=== PATIENT | female | born 1965 | race Caucasian/White ===

== ENCOUNTER 2018-01-13 13:33 | Inpatient (IN) | payer MEDICAID ==
[~2018-01-13] VITALS: Ht 154.9 cm; Wt 89.4 kg
[~2018-01-13 13:33] MED LIST: BENZ1TAB7 PO; BUPR100T4 PO; CITA40TA22 PO
[2018-01-13] MEDS ORDERED: ALBUTEROL (13:39)
[2018-01-13] MEDS ORDERED: ALBUTEROL (0.083%) 2.5MG/3ML NEB ONE ×2 (13:56→15:25)
[2018-01-13] MEDS ORDERED: IPRATROPIUM BROMIDE (0.02%) 0.5MG/2.5ML NEB ONE ×2 (13:57→15:26)
[2018-01-13] MEDS ORDERED: IPRATROPIUM BROMIDE (0.02%) 0.5MG/2.5ML NEB HHN ONE ×2 (14:00→15:30)
[2018-01-13] MEDS ORDERED: MAGNESIUM 2 G PREMIX 50 ML IV ONE (14:00)
[2018-01-13] MEDS ORDERED: ALBUTEROL (0.5%) 2.5MG/0.5ML NEB HHN ONE (14:00)
[2018-01-13 14:28] LABS: BASOPHILS % 0.5 % (0.0-2.0); EOSINOPHILS % 0.1 % (0.0-5.0); HEMATOCRIT. 44.9 % (36.0-48.0); HEMOGLOBIN. 14.6 g/dL (12.0-16.0); LYMPHOCYTES % 11.6 % (20.0-50.0); MEAN PLATELET VOLUME 7.8 fl (7.4-10.4); MONOCYTES % 4.5 % (2.0-8.0); NEUTROPHILS % 83.3 % (40.0-76.0); PLATELET 257 x1000/uL (130-400); RED BLOOD CELL COUNT 4.87 mill/uL (4.2-5.4); RED CELL DISTRIBUTION WIDTH 13.7 % (11.6-14.6)
[2018-01-13] MEDS ORDERED: ACETAMINOPHEN 325MG TABLET PO ONE (15:15)
[2018-01-13] MEDS ORDERED: ALBUTEROL (0.083%) 2.5MG/3ML NEB HHN ONE (15:30)
[2018-01-13] MEDS ORDERED: METHYLPREDNISOLONE SOD SUCC 125 MG/2 ML VIAL IV ONE (16:00)
[2018-01-13 18:20] VITALS: BP 102/75
[2018-01-13 20:00] VITALS: BP 120/67
[2018-01-13 21:19] LABS: CHLORIDE 104 mEq/L (98-107)
[2018-01-13] MEDS ORDERED: ACETAMINOPHEN 650MG/20.3ML UDC GT PRN (21:45)
[2018-01-13] MEDS ORDERED: NA PHOS,M-B/NA PHOS,DI-BA ENEMA 118ML PR PRN (21:45)
[2018-01-13] MEDS ORDERED: ENOXAPARIN 40MG/0.4ML SYR SUBCUT SCH (21:45)
[2018-01-13] MEDS ORDERED: ACETAMINOPHEN 650MG SUPP PR PRN (21:45)
[2018-01-13] MEDS ORDERED: DIPHENHYDRAMINE 50MG/ML VIAL IV PRN (21:45)
[2018-01-13] MEDS ORDERED: CLONIDINE 0.1MG TABLET PO PRN (21:45)
[2018-01-13] MEDS ORDERED: ONDANSETRON HCL 4MG/2ML VIAL IV PRN (21:45)
[2018-01-13] MEDS ORDERED: MAGNESIUM/ALUMINUM HYDROXIDE/SIMETHICONE 30ML UDC PO PRN (21:45)
[2018-01-13] MEDS ORDERED: IPRATROPIUM/ALBUTEROL 0.5-3(2.5)MG/3ML NEB INH PRN (21:45)
[2018-01-13] MEDS ORDERED: DOCUSATE SODIUM 100MG CAPSULE PO PRN (21:45)
[2018-01-13] MEDS ORDERED: ACETAMINOPHEN 325MG TABLET PO PRN (21:45)
[2018-01-13] MEDS: METHYLPREDNISOLONE SOD SUCC 40 MG/ML VIAL IV SCH (22:13)
[2018-01-13] MEDS: GUAIFENESIN 200MG/10ML SUGAR FREE UDC PO PRN (22:13)
[2018-01-13] MEDS: HYDROCODONE/ACETAMINOPHEN 10/325MG TABLET PO PRN (22:15)
[2018-01-13] MEDS: SODIUM CHLORIDE 0.9% INJ 3ML FLUSH IVF SCH (22:16)
[2018-01-13] MEDS: LEVOFLOXACIN 500MG PREMIX 100 ML IV SCH (23:32)
[2018-01-14] VITALS: BP 108/74
[2018-01-14] MEDS: IPRATROPIUM/ALBUTEROL 0.5-3(2.5)MG/3ML NEB INH SCH ×5 (01:17→20:51)
[2018-01-14 04:00] VITALS: BP 122/87
[2018-01-14 06:04] LABS: HEMATOCRIT. 41.3 % (36.0-48.0); HEMOGLOBIN. 13.6 g/dL (12.0-16.0); MEAN CORPUSCULAR HEMOGLOBIN 30.2 pg (28.0-32.0); MEAN CORPUSCULAR VOLUME 91.5 fL (81.0-99.0); MEAN PLATELET VOLUME 8.1 fl (7.4-10.4); PLATELET 255 x1000/uL (130-400); RED BLOOD CELL COUNT 4.52 mill/uL (4.2-5.4); RED CELL DISTRIBUTION WIDTH 13.6 % (11.6-14.6)
[2018-01-14] MEDS: SODIUM CHLORIDE 0.9% INJ 3ML FLUSH IVF SCH ×3 (06:14→22:25)
[2018-01-14] MEDS: METHYLPREDNISOLONE SOD SUCC 40 MG/ML VIAL IV SCH ×3 (06:14→22:25)
[2018-01-14 07:19] LABS: CHLORIDE 103 mEq/L (98-107)
[2018-01-14 07:28] LABS: LDL CHOLESTEROL 62 mg/dL (5-100)
[2018-01-14 07:29] LABS: HDL CHOLESTEROL 81 mg/dL (40-59)
[2018-01-14 08:00] VITALS: BP 108/70
[2018-01-14] MEDS ORDERED: GABA-531 MT (08:01)
[2018-01-14] MEDS ORDERED: MELO-106 MT (08:01)
[2018-01-14] MEDS: ENOXAPARIN 30MG/0.3ML SYR SUBCUT SCH ×2 (09:29→20:45)
[2018-01-14 12:00] VITALS: BP 113/68
[2018-01-14] MEDS: GABAPENTIN 300MG CAPSULE PO SCH (14:55)
[2018-01-14] MEDS: GUAIFENESIN 200MG/10ML SUGAR FREE UDC PO PRN ×2 (14:55→20:37)
[2018-01-14] MEDS: HYDROCODONE/ACETAMINOPHEN 10/325MG TABLET PO PRN (14:55)
[2018-01-14] MEDS ORDERED: BUDESONIDE 0.5MG/2ML NEB HHN SCH (15:00)
[2018-01-14 16:00] VITALS: BP 119/75
[2018-01-14 19:42] LABS: CLARITY URINE CLEAR (CLEAR); COLOR URINE YELLOW (YELLOW); KETONES URINE TRACE (NEGATIVE); LEUKOCYTE ESTERASE URINE TRACE (NEGATIVE); NITRITE URINE NEGATIVE (NEGATIVE); OCCULT BLOOD URINE NEGATIVE (NEGATIVE); PH URINE 6.5 (4.5-8.0); PROTEIN URINE TRACE (NEGATIVE); SPECIFIC GRAVITY URINE 1.032 (1.005-1.030)
[2018-01-14 19:48] LABS: *AMPHETAMINES SCREEN URINE NEGATIVE (NEGATIVE); *BARBITURATES SCREEN URINE NEGATIVE (NEGATIVE); *BENZODIAZEPINES SCREEN URINE NEGATIVE (NEGATIVE); *COCAINE SCREEN URINE NEGATIVE (NEGATIVE); METHADONE URINE SCREEN NEGATIVE (NEGATIVE)
[2018-01-14 19:49] LABS: CANNABINOID URINE SCREEN PRESUMTIVE POSITIVE (NEGATIVE); OPIATES URINE SCREEN PRESUMTIVE POSITIVE (NEGATIVE); PHENCYCLIDINE URINE SCREEN NEGATIVE (NEGATIVE)
[2018-01-14 20:00] VITALS: BP 114/66
[2018-01-14] MEDS: BUPROPION HCL 100MG TABLET PO SCH (20:33)
[2018-01-14] MEDS: BENZTROPINE MESYLATE 1MG TABLET PO SCH (20:35)
[2018-01-14] MEDS: CITALOPRAM HYDROBROMIDE 40MG TABLET PO SCH (20:36)
[2018-01-14] MEDS: MONTELUKAST SODIUM 10MG TABLET PO SCH (20:37)
[2018-01-14] MEDS: BUDESONIDE 0.5MG/2ML NEB HHN SCH (20:51)
[2018-01-14] MEDS ORDERED: CITALOPRAM HYDROBROMIDE 40MG TABLET PO SCH (21:00)
[2018-01-14] MEDS: LEVOFLOXACIN 500MG PREMIX 100 ML IV SCH (22:25)
[2018-01-15] VITALS: BP 112/71
[2018-01-15] MEDS: IPRATROPIUM/ALBUTEROL 0.5-3(2.5)MG/3ML NEB INH SCH ×4 (02:14→21:46)
[2018-01-15 04:00] VITALS: BP 107/63
[2018-01-15] MEDS: SODIUM CHLORIDE 0.9% INJ 3ML FLUSH IVF SCH ×3 (05:23→22:51)
[2018-01-15] MEDS: METHYLPREDNISOLONE SOD SUCC 40 MG/ML VIAL IV SCH ×3 (05:23→22:51)
[2018-01-15] MEDS ORDERED: SODIUM POLYSTYRENE SULFONATE 15 G/60 ML BOT PO PRN (07:30)
[2018-01-15 08:00] VITALS: BP 112/69
[2018-01-15] MEDS ORDERED: BUPROPION HCL 100MG TABLET PO SCH (09:00)
[2018-01-15] MEDS: GABAPENTIN 300MG CAPSULE PO SCH ×2 (09:11→17:51)
[2018-01-15] MEDS: BUPROPION HCL 100MG TABLET PO SCH (09:11)
[2018-01-15] MEDS: ENOXAPARIN 30MG/0.3ML SYR SUBCUT SCH ×2 (09:11→22:51)
[2018-01-15] MEDS: BUDESONIDE 0.5MG/2ML NEB HHN SCH ×2 (09:14→21:46)
[2018-01-15 09:20] LABS: BASOPHILS % 0.2 % (0.0-2.0); HEMATOCRIT. 39.8 % (36.0-48.0); HEMOGLOBIN. 13.5 g/dL (12.0-16.0); LYMPHOCYTES % 8.6 % (20.0-50.0); MEAN CORPUSCULAR HEMOGLOBIN 30.7 pg (28.0-32.0); MEAN CORPUSCULAR VOLUME 90.8 fL (81.0-99.0); MEAN PLATELET VOLUME 7.8 fl (7.4-10.4); MONOCYTES % 4.5 % (2.0-8.0); NEUTROPHILS % 86.7 % (40.0-76.0); PLATELET 281 x1000/uL (130-400); RED BLOOD CELL COUNT 4.39 mill/uL (4.2-5.4); RED CELL DISTRIBUTION WIDTH 13.6 % (11.6-14.6)
[2018-01-15 09:47] LABS: CHLORIDE 103 mEq/L (98-107)
[2018-01-15 11:05] LABS: PLATELET ESTIMATE NORMAL
[2018-01-15 12:00] VITALS: BP 105/48
[2018-01-15 16:00] VITALS: BP 119/70
[2018-01-15] MEDS: HYDROCODONE/ACETAMINOPHEN 5/325MG TABLET PO PRN (19:38)
[2018-01-15] MEDS: GUAIFENESIN 200MG/10ML SUGAR FREE UDC PO PRN (19:38)
[2018-01-15 20:00] VITALS: BP 104/68
[2018-01-15] MEDS: MONTELUKAST SODIUM 10MG TABLET PO SCH (22:50)
[2018-01-15] MEDS: FAMOTIDINE 20MG/2ML VIAL IV SCH (22:50)
[2018-01-15] MEDS: CITALOPRAM HYDROBROMIDE 40MG TABLET PO SCH (22:50)
[2018-01-15] MEDS: GUAIFENESIN 600MG ER TABLET PO SCH (22:50)
[2018-01-15] MEDS: BENZTROPINE MESYLATE 1MG TABLET PO SCH (22:51)
[2018-01-16] VITALS: BP 110/79
[2018-01-16] MEDS: IPRATROPIUM/ALBUTEROL 0.5-3(2.5)MG/3ML NEB INH SCH ×3 (01:39→14:31)
[2018-01-16 04:00] VITALS: BP 109/57
[2018-01-16] MEDS: SODIUM CHLORIDE 0.9% INJ 3ML FLUSH IVF SCH ×3 (06:07→21:08)
[2018-01-16] MEDS: METHYLPREDNISOLONE SOD SUCC 40 MG/ML VIAL IV SCH ×3 (06:07→21:08)
[2018-01-16 07:45] VITALS: BP 108/65
[2018-01-16] MEDS: BUPROPION HCL 100MG TABLET PO SCH (08:44)
[2018-01-16] MEDS: GUAIFENESIN 600MG ER TABLET PO SCH ×2 (08:45→21:08)
[2018-01-16] MEDS: BUDESONIDE 0.5MG/2ML NEB HHN SCH ×2 (08:45→20:35)
[2018-01-16] MEDS: ENOXAPARIN 30MG/0.3ML SYR SUBCUT SCH ×2 (08:45→21:08)
[2018-01-16] MEDS: GABAPENTIN 300MG CAPSULE PO SCH ×2 (08:45→17:31)
[2018-01-16] MEDS: FAMOTIDINE 20MG/2ML VIAL IV SCH ×2 (08:45→21:08)
[2018-01-16 11:43] VITALS: BP 94/62
[2018-01-16] MEDS ORDERED: TERBUTALINE SULFATE 1MG/ML VIAL SUBCUT SCH (15:15)
[2018-01-16 16:25] VITALS: BP 96/63
[2018-01-16 20:00] VITALS: BP 123/67
[2018-01-16] MEDS: MONTELUKAST SODIUM 10MG TABLET PO SCH (21:08)
[2018-01-16] MEDS: CITALOPRAM HYDROBROMIDE 40MG TABLET PO SCH (21:08)
[2018-01-16] MEDS: BENZTROPINE MESYLATE 1MG TABLET PO SCH (21:08)
[2018-01-17] VITALS: BP 149/93
[2018-01-17] MEDS: IPRATROPIUM/ALBUTEROL 0.5-3(2.5)MG/3ML NEB INH SCH ×4 (02:42→21:15)
[2018-01-17 04:00] VITALS: BP 109/78
[2018-01-17] MEDS: SODIUM CHLORIDE 0.9% INJ 3ML FLUSH IVF SCH ×3 (05:24→21:40)
[2018-01-17] MEDS: METHYLPREDNISOLONE SOD SUCC 40 MG/ML VIAL IV SCH ×3 (05:24→21:40)
[2018-01-17 08:00] VITALS: BP 106/68
[2018-01-17] MEDS: BUDESONIDE 0.5MG/2ML NEB HHN SCH ×2 (08:33→21:15)
[2018-01-17] MEDS: GABAPENTIN 300MG CAPSULE PO SCH ×2 (09:08→17:39)
[2018-01-17] MEDS: BUPROPION HCL 100MG TABLET PO SCH (09:08)
[2018-01-17] MEDS: ENOXAPARIN 30MG/0.3ML SYR SUBCUT SCH ×2 (09:09→21:40)
[2018-01-17] MEDS: GUAIFENESIN 600MG ER TABLET PO SCH ×2 (09:09→21:40)
[2018-01-17] MEDS: FAMOTIDINE 20MG/2ML VIAL IV SCH ×2 (09:09→21:39)
[2018-01-17 12:00] VITALS: BP 119/78
[2018-01-17] MEDS ORDERED: BENZONATATE 100MG CAPSULE PO PRN (12:15)
[2018-01-17 16:00] VITALS: BP 117/84
[2018-01-17 20:00] VITALS: BP 104/58
[2018-01-17] MEDS: BENZTROPINE MESYLATE 1MG TABLET PO SCH (21:40)
[2018-01-17] MEDS: CITALOPRAM HYDROBROMIDE 40MG TABLET PO SCH (21:40)
[2018-01-17] MEDS: MONTELUKAST SODIUM 10MG TABLET PO SCH (21:40)
[2018-01-18] VITALS: BP 108/76
[2018-01-18] MEDS: IPRATROPIUM/ALBUTEROL 0.5-3(2.5)MG/3ML NEB INH SCH ×4 (02:46→19:50)
[2018-01-18 04:00] VITALS: BP 111/68
[2018-01-18] MEDS: SODIUM CHLORIDE 0.9% INJ 3ML FLUSH IVF SCH ×3 (05:10→22:08)
[2018-01-18] MEDS: METHYLPREDNISOLONE SOD SUCC 40 MG/ML VIAL IV SCH ×2 (05:10→15:19)
[2018-01-18] MEDS ORDERED: P50 PO (07:24)
[2018-01-18] MEDS ORDERED: PULM50 HHN (07:25)
[2018-01-18] MEDS ORDERED: MONT10TA21 PO (07:25)
[2018-01-18] MEDS ORDERED: ALBU2.5V13 IH (07:27)
[2018-01-18 08:00] VITALS: BP 122/68
[2018-01-18 09:10] LABS: HEMATOCRIT. 42.3 % (36.0-48.0); HEMOGLOBIN. 13.5 g/dL (12.0-16.0); MEAN CORPUSCULAR HEMOGLOBIN 29.1 pg (28.0-32.0); MEAN CORPUSCULAR VOLUME 91.3 fL (81.0-99.0); MEAN PLATELET VOLUME 7.9 fl (7.4-10.4); PLATELET 328 x1000/uL (130-400); RED BLOOD CELL COUNT 4.64 mill/uL (4.2-5.4); RED CELL DISTRIBUTION WIDTH 13.8 % (11.6-14.6)
[2018-01-18] MEDS: BUDESONIDE 0.5MG/2ML NEB HHN SCH ×2 (09:23→19:51)
[2018-01-18] MEDS: BUPROPION HCL 100MG TABLET PO SCH (09:25)
[2018-01-18] MEDS: GUAIFENESIN 600MG ER TABLET PO SCH (09:25)
[2018-01-18] MEDS: FAMOTIDINE 20MG/2ML VIAL IV SCH ×2 (09:25→22:06)
[2018-01-18] MEDS: GABAPENTIN 300MG CAPSULE PO SCH ×2 (09:25→17:18)
[2018-01-18] MEDS: ENOXAPARIN 30MG/0.3ML SYR SUBCUT SCH ×2 (09:25→22:07)
[2018-01-18 09:30] LABS: CHLORIDE 101 mEq/L (98-107)
[2018-01-18 12:16] LABS: PLATELET ESTIMATE NORMAL
[2018-01-18] MEDS: HYDROCODONE/ACETAMINOPHEN 5/325MG TABLET PO PRN (15:23)
[2018-01-18] MEDS ORDERED: GUAIFENESIN/CODEINE 100-10MG/5ML UDC PO PRN (15:30)
[2018-01-18] MEDS ORDERED: TERBUTALINE SULFATE 1MG/ML VIAL SUBCUT SCH (15:30)
[2018-01-18 20:00] VITALS: BP 111/67
[2018-01-18] MEDS: MONTELUKAST SODIUM 10MG TABLET PO SCH (22:05)
[2018-01-18] MEDS: CITALOPRAM HYDROBROMIDE 40MG TABLET PO SCH (22:05)
[2018-01-18] MEDS: BENZTROPINE MESYLATE 1MG TABLET PO SCH (22:05)
[2018-01-18] MEDS: FLUTICASONE PROPIONATE 50MCG/SPRAY BOTTLE BOTHNSTRLS SCH (22:06)
[2018-01-19] VITALS: BP 124/83
[2018-01-19] MEDS: IPRATROPIUM/ALBUTEROL 0.5-3(2.5)MG/3ML NEB INH SCH ×3 (01:50→13:38)
[2018-01-19 04:00] VITALS: BP 120/78
[2018-01-19] MEDS: SODIUM CHLORIDE 0.9% INJ 3ML FLUSH IVF SCH (06:00)
[2018-01-19 08:00] VITALS: BP 107/81
[2018-01-19] MEDS: BUDESONIDE 0.5MG/2ML NEB HHN SCH (08:47)
[2018-01-19] MEDS ORDERED: PREDNISONE 20MG TABLET PO SCH (09:00)
[2018-01-19] MEDS: BUPROPION HCL 100MG TABLET PO SCH (09:03)
[2018-01-19] MEDS: FAMOTIDINE 20MG/2ML VIAL IV SCH (09:03)
[2018-01-19] MEDS: ENOXAPARIN 30MG/0.3ML SYR SUBCUT SCH (09:03)
[2018-01-19] MEDS: GABAPENTIN 300MG CAPSULE PO SCH (09:03)
[2018-01-19] MEDS: FLUTICASONE PROPIONATE 50MCG/SPRAY BOTTLE BOTHNSTRLS SCH (09:04)
[2018-01-19 09:36] VITALS: BP 107/81
[2018-01-19 12:00] VITALS: BP 113/80
== END 2018-01-19 14:15 | disposition home or self-care (01) | DRG 133 ==
LOC: ER 13:47 → 5WST 15:15 → ENRESERV 16:27
PROVIDERS: ADMIT Family Medicine; ATTEND Family Medicine
DX: J96.00 Acute respiratory failure, unspecified whether with hypoxia or hypercapnia (principal); J45.902 Unspecified asthma with status asthmaticus; F32.9 Major depressive disorder, single episode, unspecified; F41.9 Anxiety disorder, unspecified; Z88.9 Allergy status to unspecified drugs, medicaments and biological substances; F12.90 Cannabis use, unspecified, uncomplicated; Z88.0 Allergy status to penicillin; Z88.8 Allergy status to other drugs, medicaments and biological substances; F17.210 Nicotine dependence, cigarettes, uncomplicated; J00 Acute nasopharyngitis [common cold]; Z80.9 Family history of malignant neoplasm, unspecified; Z86.73 Personal history of transient ischemic attack (TIA), and cerebral infarction without residual deficits
CPT/HCPCS: 36415; 71045; 80048; 80053; 80061; 80305; 81003; 85025; 85379; 87070; 87077; 87186; 87804; 93970; 94618; 94640; 94644; 96374; 96375; 97161; 99291; C1893; J1200; J1650; J1956; J2920; J2930; J3105; J3475; J3490; J7040; J7512; J7611; J7620; J7626